=== PATIENT | male | born 1950 | race Two or more races ===

== ENCOUNTER 2018-05-16 16:26 | Emergency (ER) | payer OTHER ==
[~2018-05-16] VITALS: Ht 175.3 cm; Wt 90.7 kg
[2018-05-16] MEDS ORDERED: LOSARTAN POTAS100 MG PO (16:31)
[2018-05-16] MEDS ORDERED: NORVASC10 MG PO (16:31)
[2018-05-16] MEDS ORDERED: ASPIR 8181 MG PO (16:31)
== END 2018-05-16 21:59 | disposition home or self-care (01) ==
LOC: ER 16:26 → EDBD 16:42 → ER 16:42
DX: K57.90 Diverticulosis of intestine, part unspecified, without perforation or abscess without bleeding (principal)

== ENCOUNTER 2018-05-18 14:59 | Outpatient (CLI) | payer OTHER ==
[~2018-05-18 14:59] MED LIST: ASPIR 8181 MG PO; LOSARTAN POTAS100 MG PO; NORVASC10 MG PO
== END 2018-05-18 15:04 | disposition home or self-care (01) ==
LOC: EDBD 14:59 → SONOGRAMA 14:59
DX: E04.1 Nontoxic single thyroid nodule (principal)